=== PATIENT | female | born 1935 | race Caucasian/White ===

== ENCOUNTER → 2016-10-10 | Outpatient (CLI) | payer MEDICARE, BC ==
--- NOTE | 2016-10-10 16:39 | KCIC ---
PROCEDURE MR of the right shoulder HISTORY Right shoulder pain chronically. Patient fell 3 weeks ago. TECHNIQUE Standard noncontrast images are obtained. COMPARISON None FINDINGS The acromioclavicular joint is degenerative. Generalized rotator cuff tendinosis. There is overall thinning of the tendon, with a deep undersurface tear of the anterior supraspinatus tendon, 90 percent across and 15 mm anterior to posterior. There is some additional undersurface tearing more posteriorly which involves about 50 percent of the tendon depth. Partial subscapularis tendon tear. Moderate rotator cuff muscle volume loss with mild fatty infiltration. No significant subdeltoid bursal effusion. Small glenohumeral joint effusion. Severe primary glenohumeral joint osteoarthritis. Subchondral cyst at the inferior glenoid. There is also some reactive subchondral marrow edema. No evidence of acute fracture. No aggressive bone destruction. Reactive cystic change seen at the humeral head. Degenerative tear of the superior labrum. There is also probably some degenerative tearing at the inferior labrum with milder signal at the anterior and posterior labrum. Biceps tendinosis, without rupture or dislocation. No evidence of acute soft tissue abnormality. IMPRESSION 1. Partial undersurface tearing of the rotator cuff particularly the supraspinatus tendon, deep at the anterior aspect. Partial subscapularis tendon tear. 2. Severe primary glenohumeral joint osteoarthritis. 3. Labral degeneration, with tearing at least of the superior and inferior labrum. Electronically signed by: Tim Hernandez MD (Oct 10, 2016 16:38:21)
== END | disposition home or self-care (01) ==
LOC: KCIC MRI 15:30
PROVIDERS: ATTEND Internal Medicine
DX: M17.11 Unilateral primary osteoarthritis, right knee (principal)
CPT/HCPCS: 73221

== ENCOUNTER → 2016-11-12 | Outpatient (CLI) | payer MEDICARE, BC ==
--- NOTE | 2016-11-12 11:00 | RAD ---
DATE: 11/12/16 EXAM: DIGITAL SCREEN BILAT W/CAD HISTORY: Routine screening COMPARISON: 10/31/15 This study was interpreted with the benefit of Computerized Aided Detection (CAD). TECHNIQUE: Routine CC and MLO views of both breasts are obtained. FINDINGS: The breast tissue shows scattered fibroglandular densities, category B. There are no dominant suspicious masses, suspicious microcalcifications or evidence of architectural distortion. Stable benign-appearing calcifications and nodularities are present in both breasts IMPRESSION: Benign findings BI-RADS CATEGORY: 2 BENIGN FINDING(S) RECOMMENDED FOLLOW-UP: 12M 12 MONTH FOLLOW-UP PQRS compliance statement: Patient information was entered into a reminder system with a target due date for the next mammogram. Mammography is a sensitive method for finding small breast cancers, but it does not detect them all and is not a substitute for careful clinical examination. A negative mammogram does not negate a clinically suspicious finding and should not result in delay in biopsying a clinically suspicious abnormality. "Our facility is accredited by the [employer] Mammography Program."
== END | disposition home or self-care (01) ==
LOC: MAMMO 13:19
PROVIDERS: ATTEND Internal Medicine
DX: Z12.31 Encounter for screening mammogram for malignant neoplasm of breast (principal)
CPT/HCPCS: G0202; 77067

== ENCOUNTER → 2017-12-31 | Outpatient (CLI) | payer MEDICARE, BC | END | disposition home or self-care (01) | LOC: MAMMO 08:45 | DX: Z12.31 Encounter for screening mammogram for malignant neoplasm of breast (principal) | CPT/HCPCS: 77063; 77067 ==

== ENCOUNTER → 2018-04-30 | Outpatient (CLI) | payer MEDICARE, BC ==
[~2018-04-30] MED LIST: ASPI81TA50 PO; CRESTOR5 MG PO; GADOBUTROL 7.5 MMOL/7.5 ML VIAL IV ONE; VIT1TABL32 PO
--- NOTE | 2018-04-30 10:09 | KCIC ---
MRI of the Brain without and with Contrast 04/30/2018 Clinical History: Dizziness, hypertension and unsteady gait. Technique: Unenhanced T1-weighted sagittal and axial and FLAIR, T2-weighted, gradient echo and diffusion-weighted axial images of the brain were obtained. After the intravenous administration of 7 cc of Gadavist, enhanced T1-weighted axial, sagittal and coronal images of the brain were obtained. Findings: No previous studies are available for comparison. There is generalized parenchymal atrophy. Patchy, confluent and multiple focal areas of abnormally increased signal intensity are seen within the periventricular and subcortical white matter of both cerebral hemispheres on the FLAIR and T2-weighted images consistent with areas of extensive small vessel ischemic disease. A 1 cm old area of infarction is seen involving the left cerebellar hemisphere. A 1.5 cm rounded area of markedly decreased signal intensity is seen involving the left basal ganglia region on the gradient echo images. A somewhat oval-shaped area of markedly decreased signal intensity is seen involving the right lateral basal ganglia region on the gradient echo images. This measures 1 cm in greatest diameter. There is no surrounding edema or associated mass effect. These are felt to most likely represent cavernous angiomas. An associated venous angioma is seen involving the left basal ganglia region which measures 1.5 cm in size. No acute parenchymal abnormality is seen. No abnormal area of contrast enhancement is noted. No extra-axial fluid collection is seen. There is no MRI evidence of acute ischemia/infarction. Mild mucosal thickening is seen scattered throughout the paranasal sinuses. A 2 cm mucous retention cyst is seen involving the right maxillary sinus. Normal flow voids are seen within the major vascular structures surrounding the brain parenchyma. Impression: No acute parenchymal abnormality is seen. Electronically signed by: Brando Salvador MD (04/30/2018 10:05 AM) [id number]
== END | disposition home or self-care (01) ==
LOC: KCIC MRI 08:30
PROVIDERS: ATTEND Internal Medicine
DX: D18.09 Hemangioma of other sites (principal); I10 Essential (primary) hypertension; R42 Dizziness and giddiness
CPT/HCPCS: 70553; 82565; A9585

== ENCOUNTER → 2019-02-11 | Outpatient (CLI) | payer MEDICARE, BC ==
[~2019-02-11] MED LIST changes: -GADOBUTROL 7.5 MMOL/7.5 ML VIAL IV ONE
--- NOTE | 2019-02-11 10:44 | RAD ---
DATE: 02/11/2019 EXAM: MAMMO ELISEO SCREENING BILATERAL HISTORY: Routine screening COMPARISON: 12/31/2017 This study was interpreted with the benefit of Computerized Aided Detection (CAD). Breast Density: SCATTERED The breast parenchyma shows scattered fibroglandular densities. Breast parenchyma level B. FINDINGS: 2-D and 3-D tomosynthesis imaging was performed in CC and MLO projections. There are stable small smooth nodules in both breasts. No new or enlarging breast densities are seen. Benign type calcifications are present. No suspicious microcalcifications have developed. IMPRESSION: Stable mammograms without evidence of malignancy. BI-RADS CATEGORY: 2 BENIGN FINDING(S) RECOMMENDED FOLLOW-UP: 12M 12 MONTH FOLLOW-UP PQRS compliance statement: Patient information was entered into a reminder system with a target due date for the next mammogram. Mammography is a sensitive method for finding small breast cancers, but it does not detect them all and is not a substitute for careful clinical examination. A negative mammogram does not negate a clinically suspicious finding and should not result in delay in biopsying a clinically suspicious abnormality. "Our facility is accredited by the [employer] Mammography Program."
== END | disposition home or self-care (01) ==
LOC: MAMMO 08:50
PROVIDERS: ATTEND Internal Medicine
DX: Z12.31 Encounter for screening mammogram for malignant neoplasm of breast (principal); N63.20 Unspecified lump in the left breast, unspecified quadrant; N63.10 Unspecified lump in the right breast, unspecified quadrant; N64.89 Other specified disorders of breast
CPT/HCPCS: 77063; 77067

== ENCOUNTER → 2019-06-08 | Outpatient (CLI) | payer MEDICARE, BC ==
[~2019-06-08] MED LIST changes: +CONTRAST GIVEN. MC PRN; +IOHEXOL 240 MG/ML 50ML VIAL. PO ONE; +IOHEXOL 300 MG/ML 100ML VIAL. IV ONE
--- NOTE | 2019-06-08 17:50 | KCIC ---
Examination: CT ABDOMEN WO/W CONTRAST History: Adrenal abnormality. Orthostasis. Comparison/Correlation: CT abdomen and pelvis with contrast 02/04/2008 Findings: Axial images of the abdomen were obtained prior to and following IV contrast. Oral contrast was also administered. Delayed postcontrast images 13 minutes after the initial portal venous phase were obtained. Coronary arterial calcifications are notable. Moderate-sized hiatal hernia is present. Mild left lower lobe atelectasis is present. Minimal lingular linear atelectasis is present. Calcified granuloma involves the left lateral basilar aspect and this is unchanged. Left hepatic dome cyst is present with a calcific septation. Right hepatic lobe inferior tip cysts are also present. Cholecystectomy noted. Spleen is normal. Pancreas is unremarkable. Right adrenal gland is normal. There is a left adrenal gland 1.5 cm diameter nodule with Hounsfield units of 21 on precontrast imaging, Hounsfield units of 77 on portal venous phase imaging, and Hounsfield units of 32 on delayed postcontrast imaging. It is well-circumscribed. Left renal cyst is present at the posterior interpolar region. No enlarged abdominal lymph nodes. Inferior vena cava is mostly decompressed. Correlate with hydration status. Advanced degenerative changes of the visualized lower thoracic and upper lumbar spine noted. Impression: Left adrenal gland nodule which has characteristics of a benign adenoma is stable compared to 02/04/2008 CT abdomen and pelvis with contrast. No right adrenal gland lesion. Moderate size hiatal hernia. PQRS Compliance Statement: One or more of the following individualized dose reduction techniques were utilized for this examination: 1. Automated exposure control 2. Adjustment of the mA and/or kV according to patient size 3. Use of iterative reconstruction technique Electronically signed by: Srikanth Stafford MD (06/08/2019 5:47 PM) [facility]
== END | disposition home or self-care (01) ==
LOC: KCIC CT 08:27
PROVIDERS: ATTEND Internal Medicine
DX: K44.9 Diaphragmatic hernia without obstruction or gangrene (principal); K76.89 Other specified diseases of liver; I25.10 Atherosclerotic heart disease of native coronary artery without angina pectoris; J98.11 Atelectasis; L92.9 Granulomatous disorder of the skin and subcutaneous tissue, unspecified; N28.1 Cyst of kidney, acquired; E27.9 Disorder of adrenal gland, unspecified; Z90.49 Acquired absence of other specified parts of digestive tract
CPT/HCPCS: 74170; Q9966; Q9967

== ENCOUNTER → 2019-11-01 | Outpatient (CLI) | payer MEDICARE, BC ==
[~2019-11-01] MED LIST changes: -CONTRAST GIVEN. MC PRN; -IOHEXOL 240 MG/ML 50ML VIAL. PO ONE; -IOHEXOL 300 MG/ML 100ML VIAL. IV ONE
--- NOTE | 2019-11-01 10:48 | KCIC ---
EXAM: Zapata scale and color Doppler renal artery sonogram. HISTORY: Hypertension. TECHNIQUE: Zapata scale and color Doppler sonographic imaging of the kidneys and renal arteries with spectral waveform analysis was performed. COMPARISON: None. FINDINGS: The right kidney measures 9.4 cm [id number]. The left kidney measures 9.5 cm [id number]. There is bilateral renal cortical thinning. There is no hydronephrosis. There is a 1.6 cm cyst within the left kidney. There is a larger exophytic cyst along the lateral left kidney measuring 8.7 cm. The proximal renal arteries are obscured due to body habitus and bowel gas. There are normal peak systolic velocities within the mid and distal aspects of the renal arteries. There are normal renal artery to aorta velocity ratios. The bladder is unremarkable. IMPRESSION: 1. No Doppler evidence of greater than 60% stenosis within the renal arteries. The proximal renal arteries are obscured due to body habitus and bowel gas. 2. Left renal cysts. 3. Bilateral renal cortical thinning. Electronically signed by: Chana King MD (11/01/2019 10:45 AM) [facility] [place]
== END | disposition home or self-care (01) ==
LOC: KCIC US 08:45
PROVIDERS: ATTEND Internal Medicine
DX: N28.1 Cyst of kidney, acquired (principal); I10 Essential (primary) hypertension
CPT/HCPCS: 76770

== ENCOUNTER → 2021-04-27 | Outpatient (CLI) | payer MEDICARE, BC ==
--- NOTE | 2021-04-27 14:36 | RAD ---
EXAM: Right lower extremity arterial Doppler. HISTORY: Right lower extremity pain/swelling. COMPARISON: None. FINDINGS: Grayscale and Doppler analysis of the right lower surely arterial system was performed. There are triphasic waveforms from the common femoral artery through the popliteal artery. They are a lso triphasic within the posterior tibial and peroneal arteries. They are biphasic within the anterio r tibial artery and monophasic in the dorsalis pedis artery. There are no elevated peak systolic velo cities. IMPRESSION: 1. Mildly flow-limiting stenosis within the anterior tibial artery becomes significantly flow-limitin g by the dorsalis pedis artery. No flow-limiting stenosis more proximally. Electronically signed by: Michael Rashid MD (04/27/2021 2:34 PM) [id number]
--- NOTE | 2021-04-27 14:37 | RAD ---
EXAM: Right lower extremity venous Doppler. HISTORY: Right lower extremity pain/swelling. COMPARISON: None. FINDINGS: Grayscale and Doppler analysis of the right lower extremity deep venous system was performe d with graded compression and augmentation. The common femoral, greater saphenous, superficial femora l, popliteal and calf veins were assessed. There is no evidence of deep venous thrombosis. The greater saphenous vein has been stripped. A promi nent right inguinal lymph node measures 3.6 x 0.9 cm. It has a thin cortex and appears benign. IMPRESSION: 1. No evidence of deep venous thrombosis. Electronically signed by: Michael Rashid MD (04/27/2021 2:35 PM) [id number]
== END ==
LOC: US 13:45
PROVIDERS: ATTEND Nurse Practitioner Family
DX: I87.1 Compression of vein (principal); M25.471 Effusion, right ankle; I70.8 Atherosclerosis of other arteries
CPT/HCPCS: 93926; 93971